=== PATIENT | male | born 1965 | race Caucasian/White ===

== ENCOUNTER 2017-06-04 17:32 | Emergency (ER) | payer OTHER ==
[2017-06-04 17:36] VITALS: BP 170/107
--- NOTE | 2017-06-04 17:46 | ED HEAD/FACIAL INJ COMPLAINT ---
History of Present Illness General Chief Complaint: Laceration Procedure Stated Complaint: LIP LACERATION Source: patient Exam Limitations: no limitations Vital Signs & Intake/Output Vital Signs & Intake/Output Vital Signs Date Time Temp Pulse Resp B/P B/P Pulse O2 O2 Flow FiO2 Mean Ox Delivery Rate 06/04 1736 97.9 89 22 170/107 99 ED Intake and Output 06/05 0000 06/04 1200 Intake Total Output Total Balance Patient 180 lb Weight Allergies Coded Allergies: NO KNOWN ALLERGIES (06/04/17) Reconcile Medications Amoxicillin/Potassium Clav (Augmentin 875-125 Tablet) 875 MG-125 MG TABLET 1 TAB PO BID ORAL LACERATION Triage Note: PER PT FELL OFF LADDER APPROX 4 FEET FACE 1ST ONTO VANITY, TEETH THROUGH LIP, UNSURE OF TETANUS DENIES LOC Triage Nurses Notes Reviewed? yes Onset: Abrupt Severity: mild, moderate Severity Numbers: 6 Location: lower lip Method of Injury: fall Loss of Consciousness: no loss of consciousness HPI: 52-year-old male with no past mental history presents for evaluation after a fall. Patient states he was working on a ladder in his bathroom when he fell off the ladder hit his lower lip and teeth on the sink. He states that his lower teeth went through his lower lip causing a laceration. He denies any loss of consciousness. He denies any chipped cracked or missing teeth. He does not take blood thinners. No pain with range of motion of the jaw. No neck pain back pain chest pain shortness of breath dizziness abdominal pain. He is able to walk and bear weight. He is unsure of his last tetanus shot. He reports a laceration to his chin and lower lip. (Mario Martinez) Past History Travel History Traveled to [place] past 21 day No Medical History Any Pertinent Medical History? see below for history EENT: NONE Cardiovascular: NONE Respiratory: NONE Gastrointestinal: NONE Hepatic: NONE Renal: NONE Musculoskeletal: NONE Psychiatric: NONE Endocrine: NONE Surgical History Surgical History: non-contributory Psychosocial History What is your primary language Syrian Tobacco Use: Never used Family History Hx Contributory? No (Mario Martinez) Review of Systems Review of Systems Constitutional: Reports: no symptoms. EENTM: Reports: no symptoms. Respiratory: Reports: no symptoms. Cardiovascular: Reports: no symptoms. GI: Reports: no symptoms. Genitourinary: Reports: no symptoms. Musculoskeletal: Reports: no symptoms. Skin: Reports: see HPI (laceration). Neurological/Psychological: Reports: no symptoms. Hematologic/Endocrine: Reports: no symptoms. Immunologic/Allergic: Reports: no symptoms. All Other Systems: Reviewed and Negative (Mario Martinez) Physical Exam Physical Exam General Appearance: well developed/nourished, no apparent distress, alert, awake Head: atraumatic, normal appearance, no bruising swelling or abrasions no raccoon eyes or bai signs Eyes: Bilateral: normal appearance, PERRL, EOMI. Ears, Nose, Throat: hearing grossly normal, there is a 0.5 cm laceration located just inferior to the lower lip skin of the chin. Small amount of active bleeding. There is a 1 cm laceration to the inside of the lower lip. sq tissue is visible. Small amount of active bleeding. No foreign bodies noted. Full range of motion of the mandible without pain. No point tenderness of any of the facial bones TMJ. Patient feels his teeth are lining up. No loose chipped cracked or missing teeth. patient is handling secretions. Neck: normal inspection, supple, full range of motion, no midline tenderness Respiratory: normal breath sounds, chest non-tender, no respiratory distress, lungs clear Cardiovascular: regular rate/rhythm, normal peripheral pulses Gastrointestinal: soft, non-tender Back: normal inspection, normal range of motion, no vertebral tenderness Extremities: normal inspection, normal range of motion, no edema Psychiatric: awake, alert, oriented x 3 Cranial Nerves: normal hearing, normal speech, PERRL Coordination/Gait: normal finger to nose, normal gait Motor/Sensory: no motor/sensory deficits Skin: intact, normal color, warm/dry (Mario Martinez) Progress Differential Diagnosis: orbit fracture, skull fracture, laceration, abrasion Plan of Care: Current Medications Sig/Urszula Start time Last Medication Dose Stop Time Status Admin Ibuprofen 800 MG ONCE ONE 06/04 1744 UNVr (Motrin) 06/04 1745 Lidocaine 20 ML ONCE ONE 06/04 1744 UNVr (Lidocaine 1%) 06/04 1745 Tetanus/Diphtheria 0.5 ML ONCE ONE 06/04 1744 UNVr Toxoids Adsorbed 06/04 1745 (Decavac) Patient seen and evaluated. He has a laceration to the lower lip that requires sutures. No signs of trauma otherwise. He is moving all extremities. No midline tenderness of the neck or back. He is able walk and bear weight. Patient was given 50 50 water and hydrogen peroxide mixed to swish and spit with. 3 5-0 simple interrupted absorbable chromic sutures used to approximate the lip wound. The wound on the chin was left open to facilitate drainage. Tetanus was updated. Patient will be covered with Augmentin. Discussed wound care procedures. Discussed return precautions. Return to emergency department any concerns. (Mario Martinez) Departure Departure Disposition: HOME OR SELF CARE Condition: Stable Clinical Impression Primary Impression: Lip laceration Qualifiers: Encounter type: initial encounter Qualified Code: S01.511A - Laceration without foreign body of lip, initial encounter Referrals: Unknown (PCP/Family) Additional Instructions: Rest, keep the area clean and dry. Take antibiotics as directed for the full course. Tylenol or ibuprofen for pain. [place] for signs of infection like redness swelling discharge or pain. Make a follow-up with her primary care doctor for recheck within the next few days. The sutures will dissolve on their own. Return to the emergency department with any concerns. Departure Forms: Customer Survey General Discharge Information Prescriptions: Current Visit Scripts Amoxicillin/Potassium Clav (Augmentin 875-125 Tablet) 1 TAB PO BID #20 TAB (Mario Martinez) PA/SHELTER CASE MANAGER Co-Sign Statement Statement: ED Attending supervision documentation- I saw and evaluated the patient. I have also reviewed all the pertinent lab results and diagnostic results. I agree with the findings and the plan of care as documented in the PA's/SHELTER CASE MANAGER's documentation. x I have reviewed the ED Record and agree with the PA's/SHELTER CASE MANAGER's documentation. [] Additions or exceptions (if any) to the PAs/SHELTER CASE MANAGER's note and plan are summarized below: [] (Jered RUBIO,Guido) Procedures Laceration/Wound Repair Laceration/Wound Repair: Wound Location: face (LOWER LIP) Wound's Depth, Shape: flap, linear, subcutaneous Wound Length (cm): 1 Wound Explored: clean, no foreign body removed, irrigated extensively Irrigated w/ Saline (ccs): 200 Betadine Prep? No (H202) Anesthesia: 1% lidocaine Volume Anesthetic (ccs): 5 Wound Debrided: minimal Wound Repaired With: sutures Suture Size/Type: 5:0, CHROMIC Number of Sutures: 3 Layer Closure? No Sterile Dressing Applied: No Splint Applied? No Tetanus Status: not up to date (UPDATED TODAY) (Tito VERDUZCO,Mario)
[2017-06-04] MEDS ORDERED: AUGMENTIN 875-1 EACH PO (18:24)
== END 2017-06-04 18:29 ==
LOC: ERH 17:32
DX: S01.511A Laceration without foreign body of lip, initial encounter (principal); W11.XXXA Fall on and from ladder, initial encounter; Y92.002 Bathroom of unspecified non-institutional (private) residence as the place of occurrence of the external cause; Y93.9 Activity, unspecified
CPT/HCPCS: 90471; 90714